=== PATIENT | male | born 1970 | race Caucasian/White ===

== ENCOUNTER 2017-01-29 04:00 | Emergency (ER) | payer OTHER ==
[~2017-01-29] VITALS: Ht 170.2 cm; Wt 109.0 kg
[~2017-01-29 04:00] MED LIST: TOPI50TA4 PO; ZOFR4TAB3 SL
[2017-01-29 04:05] VITALS: BP 145/83; PULSE 63; RESP 16; TEMP 98; O2SAT 99
[2017-01-29] MEDS ORDERED: TOPA50TA7 PO (04:28)
--- NOTE | 2017-01-29 04:50 | PD ---
HPI Chief Complaint: Injury Time Seen by Provider: 04:41 Travel History International Travel<30 days: No Contact w/Intl Traveler<30days: No Traveled to known affect area: No History of Present Illness HPI 46-year-old white male presents emergency Department with complaints of right foot pain. He states that this started several days ago in the proximal dorsal portion of the foot. He states that it seemed to be mild at first but as he stood on his feet the pain would progressively get worse. He was able to go home ice and elevate and soak his foot and had improvement of his symptoms. He states now today he has had pain starting off that was more severe as if he had been on his feet all day. He presents for evaluation. He denies any trauma. No recent illness. No change in his activities. No history of hypertension or gout. No sensory loss. He states the pain is mild to moderate. PFSH Past Medical History Narrative Medical Migraines, nystagmus Hx Anticoagulant Therapy: No Cardiovascular Problems: No Chemotherapy: No Cerebrovascular Accident: No Diabetes: No Diminished Hearing: No Respiratory: No Migraines: Yes Tetanus Vaccination: < 5 Years Past Surgical History Narrative Surgical Appendectomy, vasectomy Appendectomy: Yes Hysterectomy: No Other Surgery: Yes (VASECTOMY) Social History Alcohol Use: No Tobacco Use: No Substance Use: No Allergies-Medications (Allergen,Severity, Reaction): Coded Allergies: No Known Allergies (Unverified , 01/29/17) Reported Meds & Prescriptions Reported Meds & Active Scripts Active Lortab (Hydrocodone-Acetaminophen) 5-325 Mg Tab 1 Tab PO Q8HR PRN Diclofenac Sodium DR (Diclofenac Sodium) 75 Mg Tabdr 75 Mg PO BID Reported Topamax (Topiramate) 50 Mg Tab 50 Mg PO BID Review of Systems Except as stated in HPI: all other systems reviewed are Neg Musculoskeletal: Positive: Arthralgias, Pain, No: Myalgias, Limited ROM, Weakness, Cramping, Edema Physical Exam Narrative GENERAL: This is a well-nourished, well-developed patient, in no apparent distress. SKIN: No rashes, ecchymoses or lesions. Warm and dry. HEAD: Atraumatic. Normocephalic. EYES: PERRL, EOMI, no discharge or injection. No scleral icterus. EARS: Clear NOSE: Nasal turbinates appear normal. THROAT: Mucosa pink and moist. Airway patent. NECK: Trachea midline. supple, moves head freely. LUNGS: Clear to auscultation. CV: Regular in rhythm. ABDOMEN: Soft nontender. EXT: No clubbing cyanosis or edema. Examination of the right foot reveals no pain in the heel, Achilles, ankle, distal forefoot or toes. The patient does complain of pain to the proximal lateral forefoot in the area of the cuneiforms and bones. There is no erythema or warmth. He has intact sensation with good distal pulses. Data Data Last Documented VS Vital Signs Date Time Temp Pulse Resp B/P Pulse Ox O2 Delivery O2 Flow Rate FiO2 01/29/17 04:05 98.0 63 16 145/83 99 Orders Foot, Complete ([id number]) (01/29/17 ) Naproxen (Naprosyn) (01/29/17 05:00) Acetamin-Hydrocod 325-5 Mg ([place] 5-325 (01/29/17 05:00) MDM Medical Decision Making Medical Screen Exam Complete: Yes Emergency Medical Condition: Yes Medical Record Reviewed: Yes Interpretation(s) Right foot: Negative for acute fracture. Differential Diagnosis MDM: High Differential diagnoses: Fracture, sprain, strain, dislocation, contusion, neurovascular injury, stress fracture, tendinitis Narrative Course X-rays are negative. Patient is given Lortab 5 and Naprosyn 500 mg by mouth. Panchito wrap. This right foot tendinitis Diagnosis Primary Impression: Tendinitis of right foot Patient Instructions: General Instructions Additional Instructions: Rest. Elevation. Diclofenac. Lortab for more severe pain. Panchito wrap. Follow-up with a graphic illustrator or your primary care doctor within 1 week for recheck. Return to the ER for any problems. Med/Other Pt SpecificInfo: Prescription(s) given Scripts Hydrocodone-Acetaminophen (Lortab)5-325 Mg Tab1 Tab PO Q8HR PRN (PAIN) #12 TAB Prov:Mikaela Aguillon MD 01/29/[address] 75 Mg Tabdr75 Mg PO BID #30 TAB Prov:Mikaela Aguillon MD 01/29/17 Disposition: 01 DISCHARGE HOME Condition: Stable Nate Raymond Jan 29, 2017 04:50
[2017-01-29] MEDS ORDERED: DICL75TA PO (04:59)
[2017-01-29] MEDS ORDERED: HYDR-3533 PO (04:59)
[2017-01-29] MEDS ORDERED: NAPROXEN 500 MG TAB PO ONE (05:00)
[2017-01-29] MEDS ORDERED: ACETAMINOPHEN/HYDROcodone 325 MG/5 MG TAB PO ONE (05:00)
--- NOTE | 2017-01-29 05:06 | RADRPT ---
EXAM DATE/TIME: 01/29/2017 04:44 [facility] COMPARISON: No previous studies available for comparison. INDICATIONS : Right dorsal foot pain. No known injury. MEDICAL HISTORY : None. SURGICAL HISTORY : None. ENCOUNTER: Initial ACUITY: 2 days PAIN SCORE: 6/10 LOCATION: Right foot FINDINGS: Three view examination of the right foot demonstrates no soft tissue swelling, dislocation, or fractu re. Small spur versus an avulsed fragment off the medial base of the distal phalanx of the first di git. Small calcaneal spur at the Achilles attachment. The tarsal bones appear intact. The interphala ngeal and metatarsophalangeal joints are intact. The calcaneus is intact. Bony mineralization is no rmal. CONCLUSION: 1. Small bony spur versus avulsed fragment off the medial base of the distal phalanx of the first dig it. Please correlate with patient's clinical presentation. 2. Small calcaneal spur. 3. Otherwise negative. Jluis Romo MD on January 29, 2017 at 5:00 Board Certified Radiologist. This report was verified electronically.
== END 2017-01-29 05:19 | disposition home or self-care (01) ==
LOC: NEPB 04:00
DX: M77.51 Other enthesopathy of right foot and ankle (principal)
CPT/HCPCS: 73630; 99283

== ENCOUNTER 2017-07-10 16:36 | Emergency (ER) | payer OTHER ==
[~2017-07-10] VITALS: Ht 170.2 cm; Wt 110.0 kg
[~2017-07-10 16:36] MED LIST changes: +DICL75TA PO; +HYDR-3533 PO; +TOPA50TA7 PO; -TOPI50TA4 PO; -ZOFR4TAB3 SL
[2017-07-10 16:41] VITALS: BP 166/101; PULSE 72; RESP 20; TEMP 98
[2017-07-10] MEDS ORDERED: SODIUM CHLOR 0.9% 1000 ML INJ 1,000 ML IV ONE (17:38)
--- NOTE | 2017-07-10 17:42 | PD ---
HPI Chief Complaint: Numbness/Tingling Time Seen by Provider: 17:41 Travel History International Travel<30 days: No Contact w/Intl Traveler<30days: No Traveled to known affect area: No History of Present Illness HPI 47 year old male with history of migraine headache presents to emergency department for evaluation of acute onset sensation as though the room is spinning. This started about an hour and a half ago. Patient states he was sitting at his desk working when this began. He also developed a rash on his right upper extremity that has now almost resolved. Associated nausea. No vomiting. Symptoms worsen with position changes and lateral eye movements. No headache, but describes a "heaviness' in his head. Denies recent illness, fever , or chills. No other symptoms to report. PFSH Past Medical History Hx Anticoagulant Therapy: No Cardiovascular Problems: No Chemotherapy: No Cerebrovascular Accident: No Diabetes: No Diminished Hearing: No Respiratory: No Migraines: Yes Past Surgical History Appendectomy: Yes Hysterectomy: No Other Surgery: Yes (VASECTOMY) Social History Alcohol Use: No Tobacco Use: No Substance Use: No Allergies-Medications (Allergen,Severity, Reaction): Coded Allergies: No Known Allergies (Unverified , 07/10/17) Reported Meds & Prescriptions Reported Meds & Active Scripts Active Mgnowiyq-Gefxjvdaq-PF Otic Drops (Neomycin/Polymyxin/Hydrocortisone) 1 % Soln 4 Drop RIGHT EAR QID Reglan (Metoclopramide HCl) 5 Mg Tab 5 Mg PO QID PRN Meclizine (Meclizine HCl) 25 Mg Tab 25 Mg PO TID PRN Reported Topamax (Topiramate) 50 Mg Tab 50 Mg PO BID Review of Systems Except as stated in HPI: all other systems reviewed are Neg Physical Exam Narrative GENERAL: Well nourished, male patient sitting in the stretcher in no acute distress SKIN: Warm and dry, but pt has clammy hands HEAD: Atraumatic. Normocephalic. EARS: Bilateral pinnae and left external canals appear within normal limits. Initially tympanic membrane on the right is unable to be visualized due to cerumen impaction. After removal of cerumen, Bilateral tympanic membranes without erythema, dullness or perforation. Right external canal is erythematous EYES: Pupils equal and round. No scleral icterus. No injection or drainage. Chronic lateral nystagmus; EOMI ENT: No nasal bleeding or discharge. Mucous membranes pink and moist. NECK: Trachea midline. No JVD. CARDIOVASCULAR: Regular rate and rhythm. RESPIRATORY: No accessory muscle use. Clear to auscultation. Breath sounds equal bilaterally. GASTROINTESTINAL: Abdomen soft, non-tender, nondistended. Hepatic and splenic margins not palpable. MUSCULOSKELETAL: Extremities without clubbing, cyanosis, or edema. No obvious deformities. NEUROLOGICAL: Awake and alert. No obvious cranial nerve deficits. Motor grossly within normal limits. Five out of 5 muscle strength in the arms and legs. Normal speech. PSYCHIATRIC: Appropriate mood and affect; insight and judgment normal. Data Data Last Documented VS Vital Signs Date Time Temp Pulse Resp B/P Pulse Ox O2 Delivery O2 Flow Rate FiO2 07/10/17 20:17 69 18 133/96 94 Room Air 07/10/17 16:[address] Brain W/O Iv Contrast(Rout) (07/10/17 ) Electrocardiogram (07/10/17 17:38) Basic Metabolic Panel (Bmp) (07/10/17 17:38) Complete Blood Count With Diff (07/10/17 17:38) Act Partial Throm Time (Ptt) (07/10/17 17:38) Prothrombin Time / Inr (Pt) (07/10/17 17:38) Urinalysis - C+S If Indicated (07/10/17 17:38) Ecg Monitoring (07/10/17 17:38) Iv Access Insert/Monitor (07/10/17 17:38) Oximetry (07/10/17 17:38) Meclizine (Antivert) (07/10/17 17:45) Sodium Chloride 0.9% Flush (Ns Flush) (07/10/17 17:45) Sodium Chlor 0.9% 1000 Ml Inj (Ns 1000 M (07/10/17 17:38) Ckmb (Isoenzyme) Profile (07/10/17 17:42) Magnesium (Mg) (07/10/17 17:42) Troponin I (07/10/17 17:42) Metoclopramide Inj (Reglan Inj) (07/10/17 19:00) Ear Irrigation (07/10/17 19:01) Lorazepam Inj (Ativan Inj) (07/10/17 20:00) Labs Laboratory Tests Test 07/10/17 07/10/1707/10/17 17:35 17:55 19:02 Magnesium Level 2.3 MG/DL Total Creatine Kinase 99 U/L Troponin I LESS THAN 0.02 NG/ML White Blood Count 8.7 TH/MM3 Red Blood Count 5.10 MIL/MM3 Hemoglobin 16.3 GM/DL Hematocrit 47.0 % Mean Corpuscular Volume 92.3 FL Mean Corpuscular Hemoglobin 32.0 PG Mean Corpuscular Hemoglobin 34.7 % Concent Red Cell Distribution Width 13.3 % Platelet Count 187 TH/MM3 Mean Platelet Volume 8.1 FL Neutrophils (%) (Auto) 59.4 % Lymphocytes (%) (Auto) 30.4 % Monocytes (%) (Auto) 8.0 % Eosinophils (%) (Auto) 1.4 % Basophils (%) (Auto) 0.8 % Neutrophils # (Auto) 5.2 TH/MM3 Lymphocytes # (Auto) 2.7 TH/MM3 Monocytes # (Auto) 0.7 TH/MM3 Eosinophils # (Auto) 0.1 TH/MM3 Basophils # (Auto) 0.1 TH/MM3 CBC Comment DIFF FINAL Differential Comment Prothrombin Time 10.1 SEC Prothromb Time International 0.9 RATIO Ratio Activated Partial 29.0 SEC Thromboplast Time Sodium Level 136 MEQ/L Potassium Level 3.7 MEQ/L Chloride Level 103 MEQ/L Carbon Dioxide Level 28.4 MEQ/L Anion Gap 5 MEQ/L Blood Urea Nitrogen 14 MG/DL Creatinine 0.97 MG/DL Estimat Glomerular Filtration 83 ML/MIN Rate Random Glucose 93 MG/DL Calcium Level 8.5 MG/DL Urine Color YELLOW Urine Turbidity CLEAR Urine pH 6.0 Urine Specific [place] 1.027 Urine Protein TRACE mg/dL Urine Glucose (UA) NEG mg/dL Urine Ketones NEG mg/dL Urine Occult Blood MOD Urine Nitrite NEG Urine Bilirubin NEG Urine Urobilinogen LESS THAN 2.0 MG/DL Urine Leukocyte Esterase NEG Urine RBC 6 /hpf Urine WBC 1 /hpf Urine Mucus FEW /lpf Microscopic Urinalysis Comment CULT NOT INDICATED MDM Medical Decision Making Medical Screen Exam Complete: Yes Emergency Medical Condition: Yes Medical Record Reviewed: Yes Differential Diagnosis vertigo peripheral vs central vs electrolyte abnormality vs arrhythmia vs anxiety Narrative Course 47 year old male presents to the ED for evaluation of acute onset sensation of the room spinning. Pt had associated htn and head heaviness. He appears without distress. He is mildly hypertensive. Symptoms are otherwise stable. Neuro exam is nonfocal except for chronic horizontal nystagmus. Laboratory Tests Test 07/10/17 07/10/17 07/10/17 17:35 17:55 19:02 Magnesium Level 2.3 MG/DL Total Creatine Kinase 99 U/L Troponin I LESS THAN 0.02 NG/ML White Blood Count 8.7 TH/MM3 Red Blood Count 5.10 MIL/MM3 Hemoglobin 16.3 GM/DL Hematocrit 47.0 % Mean Corpuscular Volume 92.3 FL Mean Corpuscular Hemoglobin 32.0 PG Mean Corpuscular Hemoglobin 34.7 % Concent Red Cell Distribution Width 13.3 % Platelet Count 187 TH/MM3 Mean Platelet Volume 8.1 FL Neutrophils (%) (Auto) 59.4 % Lymphocytes (%) (Auto) 30.4 % Monocytes (%) (Auto) 8.0 % Eosinophils (%) (Auto) 1.4 % Basophils (%) (Auto) 0.8 % Neutrophils # (Auto) 5.2 TH/MM3 Lymphocytes # (Auto) 2.7 TH/MM3 Monocytes # (Auto) 0.7 TH/MM3 Eosinophils # (Auto) 0.1 TH/MM3 Basophils # (Auto) 0.1 TH/MM3 CBC Comment DIFF FINAL Differential Comment Prothrombin Time 10.1 SEC Prothromb Time International 0.9 RATIO Ratio Activated Partial 29.0 SEC Thromboplast Time Sodium Level 136 MEQ/L Potassium Level 3.7 MEQ/L Chloride Level 103 MEQ/L Carbon Dioxide Level 28.4 MEQ/L Anion Gap 5 MEQ/L Blood Urea Nitrogen 14 MG/DL Creatinine 0.97 MG/DL Estimat Glomerular Filtration 83 ML/MIN Rate Random Glucose 93 MG/DL Calcium Level 8.5 MG/DL Urine Color YELLOW Urine Turbidity CLEAR Urine pH 6.0 Urine Specific [place] 1.027 Urine Protein TRACE mg/dL Urine Glucose (UA) NEG mg/dL Urine Ketones NEG mg/dL Urine Occult Blood MOD Urine Nitrite NEG Urine Bilirubin NEG Urine Urobilinogen LESS THAN 2.0 MG/DL Urine Leukocyte Esterase NEG Urine RBC 6 /hpf Urine WBC 1 /hpf Urine Mucus FEW /lpf Microscopic Urinalysis Comment CULT NOT INDICATED CBC is without acute concern. BMP is also without acute concern. Troponins less than 0.02. EKG is without acute ST elevation or depression. It's normal sinus rhythm. Urinalysis is of moderate occult blood, 6 rbc, few mucus. Culture is not indicated. CT of the brain is a normal examination. Patient has been treated with meclizine initially. He is given Reglan with moderate improvement in his symptoms. After cerumen debridement patient reported a "tin " accent to sounds but hearing remains intact. Pt is given 1 mg Ativan IV. Upon reassessment, patient verbalizes marked improvement in his symptoms. I have discussed the findings with my attending physician has also assessed the patient. This is likely benign vertigo. He is instructed to follow-up with his primary care provider and return immediately with any acute worsening of symptoms. Diagnosis Primary Impression: Vertigo Additional Impressions: Hypertension Qualified Code: I10 - Essential hypertension Impacted cerumen of right ear Otitis externa Qualified Code: H60.501 - Acute otitis externa of right ear, unspecified type Referrals: Ear / Nose / Throat Specialist Primary Care Physician Patient Instructions: Cerumen Impaction (ED), General Instructions, Hypertension (ED), Vertigo (ED) Departure Forms: Tests/Procedures Additional Instructions: Follow-up with your primary care provider. Call for appointment tomorrow for early next week Maintain adequate oral hydration Return immediately with any acute worsening of symptoms Med/Other Pt SpecificInfo: Prescription(s) given Scripts Clordclw-Oldimmmsc-SB Otic Drops 1 % Soln4 Drop RIGHT EAR QID #1 BOTTLE Ref 0 Prov:Ella Arita 07/10/17 Metoclopramide (Reglan)5 Mg Tab5 Mg PO QID PRN (NAUSEA) #20 TAB Ref 0 Prov:Ella Arita 07/10/17 Meclizine 25 Mg Tab25 Mg PO TID PRN (VERTIGO) #20 TAB Ref 0 Prov:Ella Arita 07/10/17 Disposition: 01 DISCHARGE HOME Condition: Stable Ella Arita Jul 10, 2017 17:41
[2017-07-10] MEDS ORDERED: MECLIZINE HCL 25 MG TAB PO ONE (17:45)
[2017-07-10] MEDS ORDERED: SODIUM CHLORIDE 0.9% FLUSH 10 ML FLUSH IVF PRN (17:45)
[2017-07-10 17:58] VITALS: RESP 18; O2SAT 97
[2017-07-10 17:59] VITALS: BP 168/96; PULSE 69; RESP 18; O2SAT 97
[2017-07-10 18:37] LABS: AUTOMATED NEUTROPHIL # 5.2 TH/MM3 (1.8-7.7); BASOPHIL # 0.1 TH/MM3 (0-0.2); BASOPHIL % 0.8 % (0.0-2.0); EOSINOPHIL # 0.1 TH/MM3 (0-0.4); EOSINOPHIL % 1.4 % (0.0-4.0); HEMO FLAGS DIFF FINAL; LYMPH % 30.4 % (9.0-44.0); LYMPHOCYTE # 2.7 TH/MM3 (1.0-4.8); MEAN CELL VOLUME 92.3 FL (80.0-100.0); MEAN CORPUSCULAR HGB CONC 34.7 % (32.0-36.0); NEUT % 59.4 % (16.0-70.0); PLATELET COUNT 187 TH/MM3 (150-450); RED CELL DISTRIBUTION WIDTH 13.3 % (11.6-17.2); WHITE BLOOD COUNT 8.7 TH/MM3 (4.0-11.0)
[2017-07-10 18:47] LABS: INTERNATIONAL NORMALIZED RATIO 0.9 RATIO; PROTHROMBIN TIME - PATIENT 10.1 SEC (9.8-11.6)
[2017-07-10] MEDS ORDERED: METOCLOPRAMIDE HCL 10 MG/2 ML VIAL IV PUSH ONE (19:00)
--- NOTE | 2017-07-10 19:05 | RADRPT ---
EXAM DATE/TIME: 07/10/2017 18:27 [facility] COMPARISON: No previous studies available for comparison. INDICATIONS : Dizziness with hypertension. RADIATION DOSE: 32.09 CTDIvol (mGy) MEDICAL HISTORY : Hypertension. SURGICAL HISTORY : None. ENCOUNTER: Initial ACUITY: 1 day PAIN SCALE: 0/10 LOCATION: cranial TECHNIQUE: Multiple contiguous axial images were obtained of the head. Using automated exposure control and adj ustment of the mA and/or kV according to patient size, radiation dose was kept as low as reasonably a chievable to obtain optimal diagnostic quality images. DICOM format image data is available electro nically for review and comparison. FINDINGS: CEREBRUM: The ventricles are normal for age. No evidence of midline shift, mass lesion, hemorrhage or acute in farction. No extra-axial fluid collections are seen. POSTERIOR FOSSA: The cerebellum and brainstem are intact. The 4th ventricle is midline. The cerebellopontine angle i s unremarkable. EXTRACRANIAL: The visualized portion of the orbits is intact. SKULL: The calvaria is intact. No evidence of skull fracture. CONCLUSION: Normal examination. Nate Cazares MD on July 10, 2017 at 19:02 Board Certified Radiologist. This report was verified electronically.
[2017-07-10 19:09] LABS: BICARBONATE 28.4 MEQ/L (21.0-32.0); POTASSIUM 3.7 MEQ/L (3.5-5.1)
[2017-07-10 19:10] LABS: MAGNESIUM 2.3 MG/DL (1.5-2.5)
[2017-07-10 19:16] VITALS: BP 174/104; PULSE 70; RESP 18; O2SAT 97
[2017-07-10 19:17] LABS: CREATINE KINASE 99 U/L (39-308)
[2017-07-10 19:36] LABS: BLOOD, URINE MOD (NEG); COMMENT (UR) CULT NOT INDICATED; CULTURE IF INDICATED CULT NOT INDICATED; GLUCOSE,URINE NEG (NEG); KETONE, URINE NEG (NEG); MUCUS URINE FEW /lpf (OCC); NITRITE,URINE NEG (NEG); URINE COLOR YELLOW (YELLW/STRAW)
[2017-07-10] MEDS ORDERED: LORazepam 2 MG/ML VIAL IV PUSH ONE (20:00)
[2017-07-10 20:02] VITALS: BP_SYST 143; BP_SYST 159; BP_SYST 161; BP_DIAS 88; BP_DIAS 91; BP_DIAS 93; RESP 18
[2017-07-10 20:17] VITALS: BP 133/96; PULSE 69; RESP 18; O2SAT 94
[2017-07-10] MEDS ORDERED: MECL-62 PO (20:28)
[2017-07-10] MEDS ORDERED: CORTI10A RIGHT EAR (20:28)
[2017-07-10] MEDS ORDERED: REGL5TAB PO (20:28)
--- NOTE | 2017-07-11 14:39 | EKG ---
Date Performed: 07/10/2017 Time Performed: 17:45:51 PTAGE: 47 years EKG: Sinus rhythm POSSIBLE LEFT VENTRICULAR HYPERTROPHY ABNORMAL ECG NO PREVIOUS TRACING DOCTOR: Rohith Merida Interpretating Date/Time 07/11/2017 14:35:51
== END 2017-07-10 20:40 | disposition home or self-care (01) ==
LOC: NEPD 16:36
DX: R42 Dizziness and giddiness (principal); H61.21 Impacted cerumen, right ear; H60.91 Unspecified otitis externa, right ear; I10 Essential (primary) hypertension; R21 Rash and other nonspecific skin eruption; R11.0 Nausea; R94.31 Abnormal electrocardiogram [ECG] [EKG]
CPT/HCPCS: 70450; 80048; 81001; 82550; 83735; 84484; 85025; 85610; 85730; 93005; 96361; 96374; 96375; 99285; J2060; J2765; J7030